=== PATIENT | male | born 2000 | race Caucasian/White ===

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

== ENCOUNTER 2020-05-10 10:04 | Emergency (ER) | payer OTHER ==
[~2020-05-10] VITALS: Ht 182.9 cm; Wt 63.5 kg
[2020-05-10] MEDS ORDERED: ACCU-CHEK COMFORT CURVE STRIP VI ONE (10:30)
[2020-05-10] MEDS ORDERED: SODIUM CHLORIDE 0.9% 1,000 ML IV ONE ×2 (10:30)
[2020-05-10] MEDS ORDERED: LORazepam 2MG/ML-1ML VIAL IV ONE ×2 (10:30→11:30)
[2020-05-10 10:32] LABS: Basophils # (auto) 0.1 10 ^3/uL (0-0.2); Eosinophils # (auto) 0 10 ^3/uL (0-0.8); Eosinophils % (auto) 0.4 % (0.0-7.0); Hematocrit 40.4 % (41.0-53.0); Hemoglobin 13.9 g/dL (13.5-17.5); Mean Corpuscular Hgb Conc. 34.4 g/dL (32.0-36.0); Neutrophils # (auto) 3.8 10 ^3/uL (1.6-8.6); Nucleated Red Blood Cells % 0.1 %
[2020-05-10 10:34] LABS: Basophils % (auto) 1.2 % (0.0-2.0); Lymphocytes # (auto) 2.3 10 ^3/uL (0.4-5.4); Lymphocytes % (auto) 35.5 % (10.0-50.0); Mean Corpuscular Hemoglobin 34.7 pg (28.0-32.0); Mean Corpuscular Volume 100.7 fL (80.0-100.0); Monocytes # (auto) 0.3 10 ^3/uL (0-1.3); Monocytes % (auto) 4.8 % (0.0-12.0); Neutrophils % (auto) 58.1 % (37.0-80.0); Red Blood Cells 4.01 10^6/uL (4.5-5.90); White Blood Cell 6.6 10^3/uL (4.4-10.8)
[2020-05-10 10:57] LABS: Albumin 3.6 g/dL (3.4-5.0); Calcium 7.7 mg/dL (8.5-10.1); Potassium 3.5 mmol/L (3.5-5.1)
[2020-05-10 11:01] LABS: BUN/Creatinine Ratio 9.2; Bilirubin, Total 0.2 mg/dL (0.2-1.0); Total Protein 6.6 g/dL (6.4-8.2)
[2020-05-10] MEDS ORDERED: LORazepam 2MG/ML-1ML VIAL ONE (11:04)
[2020-05-10 12:17] VITALS: BP 119/71
== END 2020-05-10 15:16 | disposition home or self-care (01) ==
LOC: ER 10:04 → EDBD 10:04 → ER 15:16
DX: R56.9 Unspecified convulsions (principal); R73.9 Hyperglycemia, unspecified; Z88.1 Allergy status to other antibiotic agents
CPT/HCPCS: 36415; 70450; 71045; 80053; 85025; 96361; 96365; 96375; 96376; 99285; J1953; J2060; J7060

== ENCOUNTER 2021-02-25 08:03 | Emergency (ER) | payer OTHER ==
[~2021-02-25] VITALS: Ht 170.2 cm; Wt 63.5 kg
[2021-02-25] MEDS ORDERED: LORazepam 2MG/ML-1ML VIAL ONE (08:43)
[2021-02-25 09:14] LABS: Eosinophils # (auto) 0 10 ^3/uL (0-0.8); Eosinophils % (auto) 0.2 % (0.0-7.0); Hemoglobin 14.9 g/dL (13.5-17.5); Mean Corpuscular Volume 105.3 fL (80.0-100.0)
[2021-02-25 09:17] LABS: Urine Bacteria FEW /hpf (None Seen); Urine Blood TRACE /uL (Negative); Urine Specific Gravity 1.014 (1.001-1.035); Urine WBC 2 /hpf (0 - 3)
[2021-02-25 09:19] LABS: Basophils # (auto) 0.1 10 ^3/uL (0-0.2); Basophils % (auto) 0.8 % (0.0-2.0); Hematocrit 45.3 % (41.0-53.0); Lymphocytes # (auto) 1.9 10 ^3/uL (0.4-5.4); Lymphocytes % (auto) 11.8 % (10.0-50.0); Mean Corpuscular Hemoglobin 34.7 pg (28.0-32.0); Mean Corpuscular Hgb Conc. 32.9 g/dL (32.0-36.0); Monocytes # (auto) 0.9 10 ^3/uL (0-1.3); Neutrophils # (auto) 12.8 10 ^3/uL (1.6-8.6); Neutrophils % (auto) 81.2 % (37.0-80.0); Red Blood Cells 4.31 10^6/uL (4.5-5.90); Red Cell Distribution Width 12.5 % (11.8-14.3); White Blood Cell 15.8 10^3/uL (4.4-10.8)
[2021-02-25] MEDS ORDERED: LORazepam 2MG/ML-1ML VIAL IV ONE (09:30)
[2021-02-25 09:40] VITALS: BP 90/55
[2021-02-25 09:45] LABS: Alcohol, Urine < 3.0 mg/dL (0-10); Amphetamine Screen, Urine NEGATIVE (NEGATIVE); Barbiturate Scree,Urine NEGATIVE (NEGATIVE); Benzodiazephine Screen, Urine POSITIVE (NEGATIVE); Cannabinoid Screen, Urine POSITIVE (NEGATIVE); Cocaine Screen, Urine NEGATIVE (NEGATIVE); Opiate Scree,Urine NEGATIVE (NEGATIVE); Phencyclidine Screen, Urine NEGATIVE (NEGATIVE)
[2021-02-25] MEDS ORDERED: SODIUM CHLORIDE 0.9% 1,000 ML IVB ONE (10:15)
[2021-02-25 11:49] LABS: Albumin 3.9 g/dL (3.4-5.0); Calcium 8.5 mg/dL (8.5-10.1); Potassium 4.3 mmol/L (3.5-5.1)
[2021-02-25 11:53] LABS: Bilirubin, Total 0.2 mg/dL (0.2-1.0); Total Protein 6.9 g/dL (6.4-8.2)
== END 2021-02-25 13:59 | disposition home or self-care (01) ==
LOC: EDSEX 08:03 → ER 08:03 → EDBD 08:03 → ER 13:59
DX: G40.909 Epilepsy, unspecified, not intractable, without status epilepticus (principal); F12.10 Cannabis abuse, uncomplicated; R73.9 Hyperglycemia, unspecified
CPT/HCPCS: 36415; 70450; 71045; 80053; 80307; 81001; 83735; 84443; 85025; 93005; 96361; 96374; 99285; J2060; J7030; A4565

== ENCOUNTER 2022-11-08 17:38 | Inpatient (IN) | payer OTHER ==
[~2022-11-08] VITALS: Ht 185.4 cm; Wt 66.1 kg
[2022-11-08] MEDS ORDERED: SODIUM CHLORIDE 0.9% 1,000 ML IVB ONE (18:15)
[2022-11-08] MEDS ORDERED: LORazepam 2MG/ML-1ML VIAL ONE (18:19)
[2022-11-08] MEDS ORDERED: ETOMIDATE (2MG/ML) 20ML VIAL IV ONE ×2 (18:22→18:28)
[2022-11-08] MEDS ORDERED: SUCCINYLCHOLINE CHLORIDE 20 MG/ML 10ML VIAL IV ONE ×2 (18:22→18:28)
[2022-11-08] MEDS ORDERED: MIDAZOLAM DRIP 50 mg/50mL 50 ML IV ONE (18:33)
[2022-11-08] MEDS: MIDAZOLAM DRIP 50 mg/50mL 50 ML IV SCH (18:33)
[2022-11-08 18:45] VITALS: PULSE 173; RESP 32; O2SAT 100
[2022-11-08] MEDS ORDERED: fentaNYL Drip 2500mCg/250mlNS 250 ML IV ONE (18:50)
[2022-11-08] MEDS: fentaNYL Drip 2500mCg/250mlNS 250 ML IV SCH (19:05)
[2022-11-08 20:02] LABS: Basophils # (auto) 0.1 10 ^3/uL (0-0.2); Eosinophils # (auto) 0 10 ^3/uL (0-0.8); Hemoglobin 14.6 g/dL (13.5-17.5); Mean Corpuscular Volume 103.6 fL (80.0-100.0); White Blood Cell 16.9 10^3/uL (4.4-10.8)
[2022-11-08 20:03] LABS: Basophils % (auto) 0.4 % (0.0-2.0); Hematocrit 43.5 % (41.0-53.0); Lymphocytes # (auto) 0.8 10 ^3/uL (0.4-5.4); Lymphocytes % (auto) 4.6 % (10.0-50.0); Mean Corpuscular Hemoglobin 34.7 pg (28.0-32.0); Mean Corpuscular Hgb Conc. 33.5 g/dL (32.0-36.0); Monocytes # (auto) 1.3 10 ^3/uL (0-1.3); Monocytes % (auto) 7.4 % (0.0-12.0); Neutrophils # (auto) 14.8 10 ^3/uL (1.6-8.6); Neutrophils % (auto) 87.6 % (37.0-80.0); Red Cell Distribution Width 12.2 % (11.8-14.3)
[2022-11-08 20:09] LABS: Urine Bacteria FEW /hpf (None Seen); Urine Blood 3+ /uL (Negative); Urine Clarity Clear (Clear); Urine Color Yellow (Yellow); Urine Hyaline Cast FEW /lpf (0 - 2); Urine Protein, UAD 1+ (Negative); Urine Urobilinogen Normal (Negative); Urine WBC 6 /hpf (0 - 3)
[2022-11-08 20:12] VITALS: PULSE 76; RESP 15; O2SAT 100
[2022-11-08 20:23] LABS: Albumin 4.3 g/dL (3.4-5.0); BUN/Creatinine Ratio 9.8 (10.0-20.0); Calcium 8.5 mg/dL (8.5-10.1); Potassium 3.8 mmol/L (3.5-5.1)
[2022-11-08 20:24] LABS: Base Excess -7.4 mmol/L (-2.0-2.0)
[2022-11-08 20:26] LABS: Bilirubin, Total 0.3 mg/dL (0.2-1.0); Total Protein 7.1 g/dL (6.4-8.2)
[2022-11-08 20:27] LABS: Lactic Acid w/Reflex 7.6 mmol/L (0.4-2.0)
[2022-11-08 20:31] LABS: INR 1.25 (0.9-1.15); Partial Thromboplastin Time 23.4 SEC (24.5-34.5); Prothrombin Time 12.9 sec (9.3-11.8)
[2022-11-08 20:32] LABS: Alcohol, Urine < 3.0 mg/dL (0-10); Amphetamine Screen, Urine NEGATIVE (NEGATIVE)
[2022-11-08 20:34] LABS: Blood Alcohol < 3.0 mg/dL (<10); Magnesium 2.3 mg/dL (1.6-2.6)
[2022-11-08 20:40] LABS: Barbiturate Scree,Urine NEGATIVE (NEGATIVE); Benzodiazephine Screen, Urine POSITIVE (NEGATIVE); Cannabinoid Screen, Urine POSITIVE (NEGATIVE); Cocaine Screen, Urine NEGATIVE (NEGATIVE); Opiate Scree,Urine NEGATIVE (NEGATIVE); Phencyclidine Screen, Urine NEGATIVE (NEGATIVE)
[2022-11-08] MEDS ORDERED: PIPERACILLIN-TAZOB 3.375GM 100 ML IV ONE (21:15)
[2022-11-08] MEDS ORDERED: SODIUM CHLORIDE 0.9% 1,000 ML IV ONE ×2 (21:15→22:00)
[2022-11-08 21:37] VITALS: BP 91/61; PULSE 102; RESP 16; TEMP 98.9; O2SAT 100
[2022-11-08] MEDS ORDERED: NITROGLYCERIN 0.4 MG SL TAB SL PRN (22:00)
[2022-11-08] MEDS ORDERED: MORPHINE SULFATE INJ 2 MG/ml SYRG IV PRN (22:00)
[2022-11-08] MEDS ORDERED: ACETAMINOPHEN 650 mg PER 20.3 mL UD NG ONE (22:00)
[2022-11-08] MEDS ORDERED: PANTOPRAZOLE 40 MG/10 ML VIAL INJ IV ONE (22:00)
[2022-11-08] MEDS ORDERED: SODIUM BICARBONATE 8.4 % INJ 50ML VIAL IV ONE (22:00)
[2022-11-08] MEDS ORDERED: ZONI100C43 PO (22:01)
[2022-11-08] MEDS ORDERED: DIVA1TAB59 PO (22:01)
[2022-11-08 22:04] VITALS: BP 104/62; PULSE 92; RESP 16; O2SAT 100
[2022-11-08] MEDS ORDERED: IOHEXOL 350 MG/ML 100ML IJ ONE (22:06)
[2022-11-08] MEDS ORDERED: LORazepam 2MG/ML-1ML VIAL IV PRN (22:15)
[2022-11-08] MEDS ORDERED: VANCOMYCIN PER PHARMACY 0 MG IV SCH (23:00)
[2022-11-08] MEDS ORDERED: HEPARIN SODIUM (PORCINE) 5000 UNITS/ML 1ML VIAL IV ONE (23:15)
[2022-11-08] MEDS ORDERED: HEPARIN DRIP/D5W 100UNITS/ML 250 ML IV SCH (23:30)
[2022-11-09] VITALS (89 sets, daily range): BP systolic 83–141; BP diastolic 46–98; PULSE 61–142; RESP 12–19; TEMP 97.3–102.7; O2SAT 98–100
[2022-11-09] MEDS: MIDAZOLAM DRIP 50 mg/50mL 50 ML IV SCH ×6 (00:48→23:25)
[2022-11-09] MEDS: SODIUM CHLORIDE 0.9% 1,000 ML IV SCH ×4 (00:51→21:09)
[2022-11-09 01:05] LABS: Basophils # (auto) 0 10 ^3/uL (0-0.2); Eosinophils # (auto) 0 10 ^3/uL (0-0.8); Hemoglobin 12.6 g/dL (13.5-17.5); Mean Corpuscular Hemoglobin 35.5 pg (28.0-32.0)
[2022-11-09 01:06] LABS: Basophils % (auto) 0.3 % (0.0-2.0); Hematocrit 37.3 % (41.0-53.0); Lymphocytes # (auto) 0.8 10 ^3/uL (0.4-5.4); Lymphocytes % (auto) 5.9 % (10.0-50.0); Mean Corpuscular Hgb Conc. 33.8 g/dL (32.0-36.0); Monocytes # (auto) 1.4 10 ^3/uL (0-1.3); Monocytes % (auto) 11.1 % (0.0-12.0); Neutrophils # (auto) 10.6 10 ^3/uL (1.6-8.6); Neutrophils % (auto) 82.7 % (37.0-80.0); Red Blood Cells 3.55 10^6/uL (4.5-5.90); Red Cell Distribution Width 12.5 % (11.8-14.3); White Blood Cell 12.8 10^3/uL (4.4-10.8)
[2022-11-09 01:19] LABS: INR 1.28 (0.9-1.15); Partial Thromboplastin Time 23.7 SEC (24.5-34.5); Prothrombin Time 13.2 sec (9.3-11.8)
[2022-11-09] MEDS: VANCOMYCIN 1GM/250ML 250 ML IV SCH ×2 (01:42→09:19)
[2022-11-09 04:10] LABS: Basophils # (auto) 0 10 ^3/uL (0-0.2); Eosinophils # (auto) 0 10 ^3/uL (0-0.8); Hemoglobin 12.9 g/dL (13.5-17.5); Lymphocytes # (auto) 1.5 10 ^3/uL (0.4-5.4); Mean Corpuscular Hgb Conc. 33.3 g/dL (32.0-36.0); Nucleated Red Blood Cells % 0.1 %; Red Blood Cells 3.68 10^6/uL (4.5-5.90); White Blood Cell 13.3 10^3/uL (4.4-10.8)
[2022-11-09 04:13] LABS: Basophils % (auto) 0.3 % (0.0-2.0); Hematocrit 38.9 % (41.0-53.0); Lymphocytes % (auto) 11.1 % (10.0-50.0); Mean Corpuscular Hemoglobin 35.2 pg (28.0-32.0); Mean Corpuscular Volume 105.8 fL (80.0-100.0); Monocytes # (auto) 1.9 10 ^3/uL (0-1.3); Monocytes % (auto) 14.3 % (0.0-12.0); Neutrophils # (auto) 9.9 10 ^3/uL (1.6-8.6); Neutrophils % (auto) 74.3 % (37.0-80.0); Red Cell Distribution Width 12.3 % (11.8-14.3)
[2022-11-09 04:27] LABS: Albumin 3.1 g/dL (3.4-5.0); Calcium 7.5 mg/dL (8.5-10.1); Potassium 4.4 mmol/L (3.5-5.1)
[2022-11-09 04:31] LABS: Lactic Acid w/Reflex 3.1 mmol/L (0.4-2.0)
[2022-11-09 04:33] LABS: BUN/Creatinine Ratio 10.3 (10.0-20.0); Bilirubin, Total 0.4 mg/dL (0.2-1.0); Total Protein 5.2 g/dL (6.4-8.2)
[2022-11-09] MEDS: CEFEPIME 1GM/ 50ML 50 ML IV SCH ×3 (05:19→21:08)
[2022-11-09 08:54] LABS: Base Excess -5.1 mmol/L (-2.0-2.0)
[2022-11-09] MEDS: NOREPINEPHRINE 8 MG/250ML KIT 250 ML IV SCH (09:14)
[2022-11-09] MEDS: PANTOPRAZOLE 40 MG/10 ML VIAL INJ IV SCH (09:19)
[2022-11-09] MEDS ORDERED: ENOXAPARIN SOD 40 MG/0.4 ML SYRINGE SC SCH (10:00)
[2022-11-09] MEDS ORDERED: ENOXAPARIN SOD 40 MG/0.4 ML SYRINGE SC ONE (11:00)
[2022-11-09] MEDS: VALPROIC ACID 250 MG/5 ML ORAL SOLN GT SCH ×2 (12:20→18:32)
[2022-11-09 14:10] LABS: INR 1.23 (0.9-1.15); Partial Thromboplastin Time 38.8 SEC (24.5-34.5); Prothrombin Time 12.7 sec (9.3-11.8)
[2022-11-09] MEDS ORDERED: VIMPAT 50 MG IV SCH (15:45)
[2022-11-09] MEDS: LACOSAMIDE 50 MG in SODIUM CHL 0.9% 50 ML IV SCH (17:30)
[2022-11-09] MEDS: ZONISAMIDE 100 MG PO SCH (18:32)
[2022-11-09] MEDS: fentaNYL Drip 2500mCg/250mlNS 250 ML IV SCH (20:20)
[2022-11-09] MEDS: ACETAMINOPHEN 325 MG TAB PO PRN (21:37)
[2022-11-10] VITALS (106 sets, daily range): BP systolic 93–136; BP diastolic 49–81; PULSE 65–125; RESP 11–21; TEMP 81–101.7; O2SAT 97–100
[2022-11-10] MEDS: MIDAZOLAM DRIP 50 mg/50mL 50 ML IV SCH ×5 (03:29→23:08)
[2022-11-10] MEDS: NOREPINEPHRINE 8 MG/250ML KIT 250 ML IV SCH (04:15)
[2022-11-10 05:04] LABS: Albumin 2.7 g/dL (3.4-5.0); Potassium 3.9 mmol/L (3.5-5.1)
[2022-11-10 05:07] LABS: BUN/Creatinine Ratio 6.2 (10.0-20.0); Bilirubin, Total 0.6 mg/dL (0.2-1.0); Total Protein 4.9 g/dL (6.4-8.2)
[2022-11-10] MEDS: VALPROIC ACID 250 MG/5 ML ORAL SOLN GT SCH ×2 (06:01→18:28)
[2022-11-10] MEDS: CEFEPIME 1GM/ 50ML 50 ML IV SCH ×3 (06:01→21:09)
[2022-11-10 06:04] LABS: Hematocrit 36.8 % (41.0-53.0); Hemoglobin 12.4 g/dL (13.5-17.5); Mean Corpuscular Hemoglobin 34.7 pg (28.0-32.0); Mean Corpuscular Hgb Conc. 33.7 g/dL (32.0-36.0); Mean Corpuscular Volume 102.8 fL (80.0-100.0); Red Blood Cells 3.58 10^6/uL (4.5-5.90); White Blood Cell 10.8 10^3/uL (4.4-10.8)
[2022-11-10 06:06] LABS: Basophils % (manual) 0 (0.0-2.0); Blast Cells 0; Eosinophils % (manual) 0 (0-7); Metamyelocytes % 0; Myelocytes % 0; Promyelocytes % 0; Reactive Lymphocytes 0
[2022-11-10] MEDS: ACETAMINOPHEN 325 MG TAB PO PRN ×3 (06:06→18:34)
[2022-11-10 06:53] LABS: Anisocytosis Slight; Band Neutrophils % (manual) 8; Lymphocytes % (manual) 25 (10.0-50.0); Macrocytosis Slight; Monocytes % (manual) 14 (0-12); Platelet Estimate Decreased; Polychromasia Slight
[2022-11-10] MEDS: SODIUM CHLORIDE 0.9% 1,000 ML IV SCH ×2 (07:30→17:30)
[2022-11-10 08:07] LABS: Base Excess -3.8 mmol/L (-2.0-2.0)
[2022-11-10] MEDS: LACOSAMIDE 50 MG in SODIUM CHL 0.9% 50 ML IV SCH ×2 (08:47→19:39)
[2022-11-10] MEDS ORDERED: ZONISAMIDE PO SCH (10:00)
[2022-11-10] MEDS: PANTOPRAZOLE 40 MG/10 ML VIAL INJ IV SCH (10:33)
[2022-11-10] MEDS: ENOXAPARIN SOD 40 MG/0.4 ML SYRINGE SC SCH (10:33)
[2022-11-10] MEDS: fentaNYL Drip 2500mCg/250mlNS 250 ML IV SCH ×2 (10:41→23:18)
[2022-11-10] MEDS: ZONISAMIDE 100 MG PO SCH (18:28)
[2022-11-11] VITALS (85 sets, daily range): BP systolic 100–145; BP diastolic 53–104; PULSE 65–123; RESP 10–21; TEMP 97.3–99.1; O2SAT 93–100
[2022-11-11] MEDS: SODIUM CHLORIDE 0.9% 1,000 ML IV SCH ×3 (03:30→23:30)
[2022-11-11] MEDS: NOREPINEPHRINE 8 MG/250ML KIT 250 ML IV SCH (03:33)
[2022-11-11] MEDS: MIDAZOLAM DRIP 50 mg/50mL 50 ML IV SCH (03:34)
[2022-11-11 03:55] LABS: Basophils # (auto) 0 10 ^3/uL (0-0.2); Basophils % (auto) 0.4 % (0.0-2.0); Eosinophils # (auto) 0.1 10 ^3/uL (0-0.8); Eosinophils % (auto) 0.9 % (0.0-7.0); Hemoglobin 11.8 g/dL (13.5-17.5); Lymphocytes # (auto) 1.2 10 ^3/uL (0.4-5.4); Lymphocytes % (auto) 16.9 % (10.0-50.0); Mean Corpuscular Hemoglobin 35.6 pg (28.0-32.0); Mean Corpuscular Hgb Conc. 34.6 g/dL (32.0-36.0); Mean Corpuscular Volume 102.8 fL (80.0-100.0); Monocytes # (auto) 1.2 10 ^3/uL (0-1.3); Monocytes % (auto) 17.3 % (0.0-12.0); Neutrophils # (auto) 4.5 10 ^3/uL (1.6-8.6); Neutrophils % (auto) 64.5 % (37.0-80.0); Nucleated Red Blood Cells % 0.1 %; Red Blood Cells 3.31 10^6/uL (4.5-5.90)
[2022-11-11 04:08] LABS: Potassium 3.5 mmol/L (3.5-5.1)
[2022-11-11 04:15] LABS: Albumin 2.5 g/dL (3.4-5.0); BUN/Creatinine Ratio 14.3 (10.0-20.0); Bilirubin, Total 0.7 mg/dL (0.2-1.0); Calcium 8.1 mg/dL (8.5-10.1); Total Protein 5.2 g/dL (6.4-8.2)
[2022-11-11] MEDS: VALPROIC ACID 250 MG/5 ML ORAL SOLN GT SCH (05:59)
[2022-11-11] MEDS: CEFEPIME 1GM/ 50ML 50 ML IV SCH ×3 (05:59→22:12)
[2022-11-11 07:41] LABS: Base Excess -5.8 mmol/L (-2.0-2.0)
[2022-11-11] MEDS: LACOSAMIDE 50 MG in SODIUM CHL 0.9% 50 ML IV SCH ×2 (08:10→20:35)
[2022-11-11] MEDS: PANTOPRAZOLE 40 MG/10 ML VIAL INJ IV SCH (11:39)
[2022-11-11] MEDS: ENOXAPARIN SOD 40 MG/0.4 ML SYRINGE SC SCH (11:39)
[2022-11-11 13:30] LABS: Base Excess -3.8 mmol/L (-2.0-2.0)
[2022-11-11] MEDS ORDERED: VALPROIC ACID 250 MG/5 ML ORAL SOLN PO SCH ×2 (18:00→18:32)
[2022-11-11] MEDS ORDERED: ONDANSETRON HCL 4 MG/2 ML VIAL ONE (18:27)
[2022-11-11] MEDS ORDERED: ONDANSETRON HCL 4 MG/2 ML VIAL IV PRN (18:30)
[2022-11-11] MEDS: ZONISAMIDE 100 MG PO SCH (20:38)
[2022-11-12] VITALS (13 sets, daily range): BP systolic 111–142; BP diastolic 61–92; PULSE 85–108; RESP 10–20; TEMP 98–98.7; O2SAT 97–100
[2022-11-12] MEDS: NOREPINEPHRINE 8 MG/250ML KIT 250 ML IV SCH (03:41)
[2022-11-12 04:23] LABS: Potassium 3.7 mmol/L (3.5-5.1)
[2022-11-12 04:26] LABS: Basophils # (auto) 0 10 ^3/uL (0-0.2); Basophils % (auto) 0.1 % (0.0-2.0); Eosinophils # (auto) 0 10 ^3/uL (0-0.8); Hematocrit 34.5 % (41.0-53.0); Hemoglobin 11.9 g/dL (13.5-17.5); Lymphocytes # (auto) 0.3 10 ^3/uL (0.4-5.4); Lymphocytes % (auto) 4.5 % (10.0-50.0); Mean Corpuscular Hemoglobin 34.8 pg (28.0-32.0); Mean Corpuscular Hgb Conc. 34.5 g/dL (32.0-36.0); Monocytes # (auto) 0.7 10 ^3/uL (0-1.3); Monocytes % (auto) 9.6 % (0.0-12.0); Neutrophils % (auto) 85.8 % (37.0-80.0); Red Blood Cells 3.42 10^6/uL (4.5-5.90); Red Cell Distribution Width 11.9 % (11.8-14.3)
[2022-11-12 04:31] LABS: Albumin 2.7 g/dL (3.4-5.0); BUN/Creatinine Ratio 14.5 (10.0-20.0); Bilirubin, Total 0.5 mg/dL (0.2-1.0); Calcium 8.6 mg/dL (8.5-10.1); Total Protein 5.8 g/dL (6.4-8.2)
[2022-11-12] MEDS: CEFEPIME 1GM/ 50ML 50 ML IV SCH (05:47)
[2022-11-12] MEDS ORDERED: VALPROIC ACID 250 MG/5 ML ORAL SOLN PO SCH ×2 (07:00)
[2022-11-12] MEDS: LACOSAMIDE 50 MG in SODIUM CHL 0.9% 50 ML IV SCH (08:35)
[2022-11-12] MEDS: ENOXAPARIN SOD 40 MG/0.4 ML SYRINGE SC SCH (10:00)
[2022-11-12] MEDS ORDERED: ZONI100C43 PO (10:35)
[2022-11-12] MEDS ORDERED: LACO50TA2 PO (10:35)
[2022-11-12] MEDS ORDERED: LACOSAMIDE 50 MG TAB PO SCH (14:00)
[2022-11-13] MEDS ORDERED: PANTOPRAZOLE 40 MG TAB PO SCH (10:00)
== END 2022-11-12 12:15 | disposition home or self-care (01) | DRG 871 ==
LOC: EDBD 17:38 → ER 17:38 → TELE 21:56 → ICU WEST 23:45
PROVIDERS: ADMIT Internal Medicine; ATTEND Internal Medicine
PROC: 5A1945Z Respiratory Ventilation, 24-96 Consecutive Hours (ICD-10-PCS; principal; 2022-11-08)
PROC: 0BH17EZ Insertion of Endotracheal Airway into Trachea, Via Natural or Artificial Opening (ICD-10-PCS; 2022-11-08)
PROC: 05HB33Z Insertion of Infusion Device into Right Basilic Vein, Percutaneous Approach (ICD-10-PCS; 2022-11-11)
PROC: B54MZZA Ultrasonography of Right Upper Extremity Veins, Guidance (ICD-10-PCS; 2022-11-11)
DX: A41.9 Sepsis, unspecified organism (principal); I21.A1 Myocardial infarction type 2; J96.01 Acute respiratory failure with hypoxia; E44.1 Mild protein-calorie malnutrition; G40.201 Localization-related (focal) (partial) symptomatic epilepsy and epileptic syndromes with complex partial seizures, not intractable, with status epilepticus; J98.11 Atelectasis; Z68.1 Body mass index [BMI] 19.9 or less, adult; D53.9 Nutritional anemia, unspecified; F17.290 Nicotine dependence, other tobacco product, uncomplicated; D69.6 Thrombocytopenia, unspecified; Z88.1 Allergy status to other antibiotic agents; Z79.899 Other long term (current) drug therapy
CPT/HCPCS: 31500; 36415; 36600; 70450; 71045; 71275; 72125; 80053; 80164; 80307; 80320; 81001; 82542; 82607; 82746; 82805; 83605; 83735; 84443; 84484; 85007; 85025; 85027; 85379; 85610; 85730; 87040; 87070; 87081; 87205; 93005; 94002; 94003; 95819; 96365; 96367; 96375; C9113; C9254; G0378; J0330; J2250; J2405; J2543; J7060

== ENCOUNTER 2023-04-25 17:01 | Inpatient (IN) | payer OTHER ==
[~2023-04-25] VITALS: Ht 190.5 cm; Wt 62.4 kg
[~2023-04-25 17:01] MED LIST: DIVA1TAB59 PO; LACO50TA2 PO; ZONI100C43 PO
[2023-04-25 17:02] VITALS: PULSE 133; RESP 31; O2SAT 91
[2023-04-25] MEDS ORDERED: MIDAZOLAM DRIP 50 mg/50mL 50 ML IV ONE (17:08)
[2023-04-25 17:10] VITALS: BP 144/107; PULSE 96; RESP 18; O2SAT 100
[2023-04-25] MEDS: MIDAZOLAM DRIP 50 mg/50mL 50 ML IV SCH (17:15)
[2023-04-25 18:12] LABS: Base Excess -11.5 mmol/L (-2.0-2.0)
[2023-04-25] MEDS ORDERED: PROPOFOL 100 ML IV ONE (18:12)
[2023-04-25] MEDS: PROPOFOL 100 ML IV SCH (18:15)
[2023-04-25] MEDS ORDERED: ROCURONIUM 10MG/ML 10ML VIAL IV ONE ×2 (18:49→19:00)
[2023-04-25 18:51] LABS: Alanine Aminotransferase 17 U/L (7-40); Albumin 4.9 g/dL (3.2-4.8); Alkaline Phosphatase 57 U/L (46-116); Anion Gap 12 (5-15); Aspartate Aminotransferase 16 U/L (13-40); BUN/Creatinine Ratio 12.4 (10.0-20.0); Blood Urea Nitrogen 13 mg/dL (9-23); Calcium 9.2 mg/dL (8.7-10.4); Carbon Dioxide 17 mmol/L (20-30); Chloride 111 mmol/L (98-107); Glucose 235 mg/dL (74-106); Magnesium 1.9 mg/dL (1.6-2.6); Potassium 4.2 mmol/L (3.5-5.1); Sodium 140 mmol/L (136-145)
[2023-04-25 18:52] LABS: Bilirubin, Total 0.4 mg/dL (0.2-1.0); Total Protein 6.7 g/dL (5.7-8.2)
[2023-04-25 18:54] LABS: Basophils # (auto) 0.1 10 ^3/uL (0-0.2); Basophils % (auto) 0.5 % (0.0-2.0); Eosinophils # (auto) 0 10 ^3/uL (0-0.8); Eosinophils % (auto) 0.1 % (0.0-7.0); Hemoglobin 14.5 g/dL (13.5-17.5); Monocytes # (auto) 0.6 10 ^3/uL (0-1.3)
[2023-04-25 18:57] LABS: Hematocrit 43.5 % (41.0-53.0); Lymphocytes # (auto) 1.3 10 ^3/uL (0.4-5.4); Lymphocytes % (auto) 9.7 % (10.0-50.0); Mean Corpuscular Hgb Conc. 33.4 g/dL (32.0-36.0); Mean Corpuscular Volume 101.9 fL (80.0-100.0); Monocytes % (auto) 4.7 % (0.0-12.0); Neutrophils # (auto) 11.4 10 ^3/uL (1.6-8.6); Nucleated Red Blood Cells % 0.1 %; Red Blood Cells 4.27 10^6/uL (4.5-5.90); Red Cell Distribution Width 12.2 % (11.8-14.3); White Blood Cell 13.4 10^3/uL (4.4-10.8)
[2023-04-25 18:59] LABS: Amphetamine Screen, Urine Neg (NEGATIVE); Urine Bacteria FEW /hpf (None Seen); Urine Blood TRACE /uL (Negative); Urine Budding Yeast FEW /hpf (None Seen); Urine Clarity Clear (Clear); Urine Color Colorless (Yellow); Urine Protein, UAD 2+ (Negative); Urine Specific Gravity 1.011 (1.001-1.035); Urine Urobilinogen Normal (Negative); Urine WBC 13 /hpf (0 - 3); Urine pH 6.5 (5.0-8.0)
[2023-04-25 19:00] LABS: Barbiturate Scree,Urine Neg (NEGATIVE); Benzodiazephine Screen, Urine Pos (NEGATIVE); Cannabinoid Screen, Urine Pos (NEGATIVE); Cocaine Screen, Urine Neg (NEGATIVE); Opiate Scree,Urine Neg (NEGATIVE); Phencyclidine Screen, Urine Neg (NEGATIVE)
[2023-04-25 19:09] LABS: INR 1.23 (0.9-1.15); Partial Thromboplastin Time 27.8 SEC (24.5-34.5); Prothrombin Time 12.7 sec (9.3-11.8)
[2023-04-25 19:18] LABS: Blood Alcohol 3.5 mg/dL (<10)
[2023-04-25 19:30] VITALS: BP 145/91; PULSE 100; PULSE 102; RESP 18; O2SAT 100
[2023-04-25 19:31] LABS: Lactic Acid w/Reflex 4.5 mmol/L (0.4-2.0)
[2023-04-25 19:45] VITALS: BP 129/85; PULSE 112; RESP 20; O2SAT 100
[2023-04-25] MEDS ORDERED: LORazepam 2MG/ML-1ML VIAL ONE (20:51)
[2023-04-25] MEDS ORDERED: LORazepam 2MG/ML-1ML VIAL IV ONE (21:00)
[2023-04-25] MEDS ORDERED: VALPROATE INJ 1,000 MG in SODIUM CHL 0.9% 100 ML IV ONE (21:00)
[2023-04-25] MEDS ORDERED: ONDANSETRON HCL 4 MG/2 ML VIAL IV PRN (21:30)
[2023-04-25] MEDS ORDERED: LORazepam 2MG/ML-1ML VIAL IV PRN (21:30)
[2023-04-25] MEDS ORDERED: MORPHINE SULFATE INJ 2 MG/ml SYRG IV PRN (21:45)
[2023-04-25] MEDS ORDERED: NITROGLYCERIN 0.4 MG SL TAB SL PRN (21:45)
[2023-04-25] MEDS: LACTATED RINGER S IV ONE (22:00)
[2023-04-25] MEDS ORDERED: LACTATED RINGER'S 1,000 ML IV ONE (22:00)
[2023-04-25] MEDS: SODIUM CHLOR 0.9% PF (SALINE LOCK) 10ML VIAL/SYR IV SCH (22:02)
[2023-04-25 22:08] VITALS: BP 110/77; PULSE 108; RESP 21; O2SAT 100
[2023-04-26] VITALS (69 sets, daily range): BP systolic 90–137; BP diastolic 52–88; PULSE 70–105; RESP 16–29; TEMP 97.5–99.3; O2SAT 89–100
[2023-04-26 05:24] LABS: Basophils # (auto) 0 10 ^3/uL (0-0.2); Eosinophils # (auto) 0 10 ^3/uL (0-0.8); Hemoglobin 12.9 g/dL (13.5-17.5); Lymphocytes # (auto) 0.5 10 ^3/uL (0.4-5.4); Monocytes # (auto) 1.5 10 ^3/uL (0-1.3); Neutrophils # (auto) 12.4 10 ^3/uL (1.6-8.6); Red Cell Distribution Width 12.2 % (11.8-14.3)
[2023-04-26 05:27] LABS: Basophils % (auto) 0.2 % (0.0-2.0); Hematocrit 37.7 % (41.0-53.0); Lymphocytes % (auto) 3.5 % (10.0-50.0); Mean Corpuscular Hemoglobin 34.4 pg (28.0-32.0); Mean Corpuscular Hgb Conc. 34.2 g/dL (32.0-36.0); Mean Corpuscular Volume 100.6 fL (80.0-100.0); Monocytes % (auto) 10.4 % (0.0-12.0); Neutrophils % (auto) 85.9 % (37.0-80.0); Red Blood Cells 3.75 10^6/uL (4.5-5.90); White Blood Cell 14.5 10^3/uL (4.4-10.8)
[2023-04-26 05:34] LABS: Alanine Aminotransferase 14 U/L (7-40); Albumin 3.8 g/dL (3.2-4.8); Alkaline Phosphatase 41 U/L (46-116); Anion Gap 8 (5-15); Aspartate Aminotransferase 12 U/L (13-40); BUN/Creatinine Ratio 8.1 (10.0-20.0); Bilirubin, Total 0.5 mg/dL (0.2-1.0); Blood Urea Nitrogen 8 mg/dL (9-23); Calcium 8.4 mg/dL (8.7-10.4); Carbon Dioxide 20 mmol/L (20-30); Chloride 113 mmol/L (98-107); Glucose 99 mg/dL (74-106); Sodium 141 mmol/L (136-145); Total Protein 5.6 g/dL (5.7-8.2)
[2023-04-26] MEDS: SODIUM CHLOR 0.9% PF (SALINE LOCK) 10ML VIAL/SYR IV SCH ×3 (06:05→21:45)
[2023-04-26 06:56] LABS: Base Excess -4.1 mmol/L (-2.0-2.0)
[2023-04-26] MEDS: MIDAZOLAM DRIP 50 mg/50mL 50 ML IV SCH ×4 (08:58→22:08)
[2023-04-26] MEDS ORDERED: VALPROATE INJ 500 MG in SODIUM CHL 0.9% 100 ML IV SCH (10:00)
[2023-04-26] MEDS: SODIUM CHLORIDE 0.9% 1,000 ML IV SCH ×2 (13:52→21:42)
[2023-04-26] MEDS: PROPOFOL 100 ML IV SCH ×3 (13:53→22:08)
[2023-04-26] MEDS: ALBUTEROL SULF 2.5 MG/0.5ML(0.5%) NEB SOLN NEB SCH ×3 (13:56→22:21)
[2023-04-26] MEDS: PIPERACILLIN-TAZOB 3.375GM 100 ML IV SCH ×2 (15:14→18:58)
[2023-04-26] MEDS: IPRATROPIUM BROM 0.5 MG/2.5ML INH SOL NEB PRN ×2 (18:56→22:21)
[2023-04-26] MEDS ORDERED: chlorproMAZINE HCL 25 MG/1 ML AMP IM PRN (19:00)
[2023-04-26] MEDS: fentaNYL Drip 2500mCg/250mlNS 250 ML IV SCH (20:17)
[2023-04-26] MEDS: VALPROATE INJ 500 MG in SODIUM CHL 0.9% 100 ML IV SCH (22:08)
[2023-04-27] VITALS (106 sets, daily range): BP systolic 101–139; BP diastolic 53–90; PULSE 72–117; RESP 16–36; TEMP 97.7–98.8; O2SAT 97–100
[2023-04-27] MEDS: PIPERACILLIN-TAZOB 3.375GM 100 ML IV SCH ×4 (00:21→17:24)
[2023-04-27] MEDS: MIDAZOLAM DRIP 50 mg/50mL 50 ML IV SCH ×4 (00:42→17:25)
[2023-04-27] MEDS: SODIUM CHLOR 0.9% PF (SALINE LOCK) 10ML VIAL/SYR IV SCH ×3 (05:22→21:34)
[2023-04-27] MEDS: VALPROATE INJ 500 MG in SODIUM CHL 0.9% 100 ML IV SCH ×3 (05:22→21:34)
[2023-04-27] MEDS: PROPOFOL 100 ML IV SCH ×3 (05:23→15:39)
[2023-04-27] MEDS: IPRATROPIUM BROM 0.5 MG/2.5ML INH SOL NEB PRN ×3 (06:31→19:20)
[2023-04-27] MEDS: ALBUTEROL SULF 2.5 MG/0.5ML(0.5%) NEB SOLN NEB SCH ×3 (06:31→19:20)
[2023-04-27] MEDS: SODIUM CHLORIDE 0.9% 1,000 ML IV SCH ×2 (06:38→10:27)
[2023-04-27 09:05] LABS: Basophils # (auto) 0 10 ^3/uL (0-0.2); Eosinophils # (auto) 0 10 ^3/uL (0-0.8); Lymphocytes # (auto) 1.3 10 ^3/uL (0.4-5.4); Monocytes % (auto) 10.1 % (0.0-12.0)
[2023-04-27 09:07] LABS: Basophils % (auto) 0.2 % (0.0-2.0); Eosinophils % (auto) 0.2 % (0.0-7.0); Hemoglobin 12.3 g/dL (13.5-17.5); Lymphocytes % (auto) 11.6 % (10.0-50.0); Mean Corpuscular Hemoglobin 34.8 pg (28.0-32.0); Mean Corpuscular Volume 102.2 fL (80.0-100.0); Monocytes # (auto) 1.1 10 ^3/uL (0-1.3); Neutrophils # (auto) 8.7 10 ^3/uL (1.6-8.6); Neutrophils % (auto) 77.9 % (37.0-80.0); Red Blood Cells 3.53 10^6/uL (4.5-5.90); Red Cell Distribution Width 12.4 % (11.8-14.3); White Blood Cell 11.2 10^3/uL (4.4-10.8)
[2023-04-27 09:08] LABS: Chloride 113 mmol/L (98-107); Potassium 3.9 mmol/L (3.5-5.1); Sodium 143 mmol/L (136-145)
[2023-04-27 09:09] LABS: Anion Gap 9 (5-15); Calcium 8.7 mg/dL (8.5-10.1); Carbon Dioxide 21 mmol/L (20-30)
[2023-04-27 09:14] LABS: BUN/Creatinine Ratio 10.6 (10.0-20.0); Blood Urea Nitrogen 10 mg/dL (9-23); Glucose 88 mg/dL (74-106)
[2023-04-27] MEDS ORDERED: ENOXAPARIN SOD 40 MG/0.4 ML SYRINGE SC SCH (10:00)
[2023-04-27] MEDS: fentaNYL Drip 2500mCg/250mlNS 250 ML IV SCH (17:25)
[2023-04-28] VITALS (103 sets, daily range): BP systolic 101–159; BP diastolic 59–101; PULSE 71–150; RESP 10–24; TEMP 97.6–98.8; O2SAT 89–100
[2023-04-28] MEDS: IPRATROPIUM BROM 0.5 MG/2.5ML INH SOL NEB PRN ×4 (00:22→18:22)
[2023-04-28] MEDS: ALBUTEROL SULF 2.5 MG/0.5ML(0.5%) NEB SOLN NEB SCH ×4 (00:22→18:22)
[2023-04-28] MEDS: SODIUM CHLORIDE 0.9% 1,000 ML IV SCH (04:34)
[2023-04-28 04:39] LABS: Basophils # (auto) 0 10 ^3/uL (0-0.2); Basophils % (auto) 0.4 % (0.0-2.0); Eosinophils # (auto) 0.1 10 ^3/uL (0-0.8); Hematocrit 31.4 % (41.0-53.0); Hemoglobin 10.6 g/dL (13.5-17.5); Lymphocytes # (auto) 1.3 10 ^3/uL (0.4-5.4); Monocytes # (auto) 0.8 10 ^3/uL (0-1.3); Red Blood Cells 3.06 10^6/uL (4.5-5.90); Red Cell Distribution Width 12.5 % (11.8-14.3)
[2023-04-28 04:48] LABS: Eosinophils % (auto) 1.6 % (0.0-7.0); Lymphocytes % (auto) 19.5 % (10.0-50.0); Mean Corpuscular Hemoglobin 34.7 pg (28.0-32.0); Mean Corpuscular Hgb Conc. 33.8 g/dL (32.0-36.0); Mean Corpuscular Volume 102.8 fL (80.0-100.0); Monocytes % (auto) 11.6 % (0.0-12.0); Neutrophils # (auto) 4.5 10 ^3/uL (1.6-8.6); Neutrophils % (auto) 66.9 % (37.0-80.0); Nucleated Red Blood Cells % 0.1 %; White Blood Cell 6.7 10^3/uL (4.4-10.8)
[2023-04-28 05:01] LABS: Base Excess -4.4 mmol/L (-2.0-2.0)
[2023-04-28 05:02] LABS: Alanine Aminotransferase 11 U/L (7-40); Albumin 3.2 g/dL (3.2-4.8); Alkaline Phosphatase 38 U/L (46-116); Anion Gap 7 (5-15); Aspartate Aminotransferase 24 U/L (13-40); BUN/Creatinine Ratio 10.9 (10.0-20.0); Blood Urea Nitrogen 7 mg/dL (9-23); Calcium 8.1 mg/dL (8.7-10.4); Carbon Dioxide 23 mmol/L (20-30); Chloride 114 mmol/L (98-107); Glucose 84 mg/dL (74-106); Potassium 3.6 mmol/L (3.5-5.1); Sodium 144 mmol/L (136-145)
[2023-04-28 05:03] LABS: Bilirubin, Total 0.5 mg/dL (0.2-1.0); Total Protein 4.8 g/dL (5.7-8.2)
[2023-04-28] MEDS: SODIUM CHLOR 0.9% PF (SALINE LOCK) 10ML VIAL/SYR IV SCH ×3 (05:42→22:03)
[2023-04-28] MEDS: PIPERACILLIN-TAZOB 3.375GM 100 ML IV SCH (05:42)
[2023-04-28] MEDS: VALPROATE INJ 500 MG in SODIUM CHL 0.9% 100 ML IV SCH ×3 (05:43→21:55)
[2023-04-28] MEDS ORDERED: levoFLOXacin 500MG 100 ML IV SCH (10:00)
[2023-04-28] MEDS: LORazepam 2MG/ML-1ML VIAL IV PRN ×2 (10:30→20:50)
[2023-04-28] MEDS ORDERED: FOLIC ACID 1 MG, MULTIPLE VITAMIN 10 ML, MAGNESIUM SULF SDV 50% 8 MEQ, THIAMINE INJ 100... INJ SCH ×10 (10:30→18:00)
[2023-04-28] MEDS ORDERED: FOLIC ACID 1 MG, MULTIPLE VITAMIN 10 ML, MAGNESIUM SULF SDV 50% 8 MEQ, THIAMINE INJ 100... INJ ONE ×5 (11:30)
[2023-04-28] MEDS: PROPOFOL 100 ML IV SCH (18:15)
[2023-04-28] MEDS: fentaNYL Drip 2500mCg/250mlNS 250 ML IV SCH (19:45)
[2023-04-29] VITALS (42 sets, daily range): BP systolic 112–147; BP diastolic 61–102; PULSE 89–125; RESP 10–25; TEMP 97.8–99; O2SAT 94–99
[2023-04-29] MEDS: IPRATROPIUM BROM 0.5 MG/2.5ML INH SOL NEB PRN ×2 (00:39→08:43)
[2023-04-29] MEDS: ALBUTEROL SULF 2.5 MG/0.5ML(0.5%) NEB SOLN NEB SCH ×2 (00:39→08:43)
[2023-04-29] MEDS: VALPROATE INJ 500 MG in SODIUM CHL 0.9% 100 ML IV SCH (05:52)
[2023-04-29] MEDS: SODIUM CHLOR 0.9% PF (SALINE LOCK) 10ML VIAL/SYR IV SCH (05:55)
[2023-04-29] MEDS: LORazepam 2MG/ML-1ML VIAL IV PRN (06:40)
[2023-04-29] MEDS ORDERED: FOLIC ACID 1 MG, MULTIPLE VITAMIN 10 ML, MAGNESIUM SULF SDV 50% 8 MEQ, THIAMINE INJ 100... INJ SCH ×5 (18:00)
== END 2023-04-29 09:15 | disposition left against medical advice (07) | DRG 871 ==
LOC: ER 17:01 → EDBD 17:01 → TELE 21:43 → ICU WEST 21:43 → UNDOADMIN 22:06 → TELE 22:06 → ICU WEST 04-26 17:35
PROVIDERS: ADMIT Nurse Practitioner Family; ATTEND Nurse Practitioner Acute Care
PROC: 5A1945Z Respiratory Ventilation, 24-96 Consecutive Hours (ICD-10-PCS; principal; 2023-04-25)
PROC: 0BH17EZ Insertion of Endotracheal Airway into Trachea, Via Natural or Artificial Opening (ICD-10-PCS; 2023-04-25)
PROC: 5A09357 Assistance with Respiratory Ventilation, Less than 24 Consecutive Hours, Continuous Positive Airway Pressure (ICD-10-PCS; 2023-04-29)
DX: A41.9 Sepsis, unspecified organism (principal); J69.0 Pneumonitis due to inhalation of food and vomit; J96.00 Acute respiratory failure, unspecified whether with hypoxia or hypercapnia; E87.20 Acidosis, unspecified; G40.901 Epilepsy, unspecified, not intractable, with status epilepticus; I10 Essential (primary) hypertension; F17.290 Nicotine dependence, other tobacco product, uncomplicated; D53.9 Nutritional anemia, unspecified; Z88.1 Allergy status to other antibiotic agents; Z79.899 Other long term (current) drug therapy; Z53.29 Procedure and treatment not carried out because of patient's decision for other reasons
CPT/HCPCS: 31500; 36415; 36556; 36600; 70450; 70551; 71045; 80048; 80053; 80164; 80307; 80320; 81001; 82805; 83036; 83605; 83735; 84484; 85025; 85610; 85730; 87040; 87070; 87081; 87205; 93005; 94002; 94003; 94640; 95819; 96365; 96375; G0378; J1956; J2250; J2543; J2704; J7060

== ENCOUNTER 2023-09-16 11:08 | Inpatient (IN) | payer OTHER ==
[~2023-09-16] VITALS: Ht 182.9 cm; Wt 68.1 kg
[2023-09-16] VITALS (9 sets, daily range): BP systolic 100–124; BP diastolic 58–76; PULSE 66–111; RESP 18–32; TEMP 100.6; O2SAT 99–100
[2023-09-16] MEDS ORDERED: LORazepam 2MG/ML-1ML VIAL ONE (11:13)
[2023-09-16] MEDS: LORazepam 2MG/ML-1ML VIAL IV ONE (11:19)
[2023-09-16] MEDS: ROCURONIUM 10MG/ML 10ML VIAL IV ONE ×3 (11:24→12:38)
[2023-09-16] MEDS: ETOMIDATE (2MG/ML) 20ML VIAL IV ONE ×2 (11:24→11:31)
[2023-09-16] MEDS: MIDAZOLAM DRIP 50 mg/50mL 50 ML IV SCH (11:25)
[2023-09-16] MEDS: MIDAZOLAM DRIP 50 mg/50mL 50 ML IV ONE (11:31)
[2023-09-16 11:45] LABS: Urine Bacteria None Seen /hpf (None Seen)
[2023-09-16 11:57] LABS: Basophils # (auto) 0.1 10 ^3/uL (0-0.2); Basophils % (auto) 0.7 % (0.0-2.0); Eosinophils # (auto) 0 10 ^3/uL (0-0.8); Eosinophils % (auto) 0.2 % (0.0-7.0); Hematocrit 45.4 % (41.0-53.0); Hemoglobin 14.5 g/dL (13.5-17.5); Lymphocytes # (auto) 2.9 10 ^3/uL (0.4-5.4); Lymphocytes % (auto) 27.7 % (10.0-50.0); Mean Corpuscular Hemoglobin 33.8 pg (28.0-32.0); Mean Corpuscular Volume 105.6 fL (80.0-100.0); Monocytes # (auto) 0.9 10 ^3/uL (0-1.3); Monocytes % (auto) 8.9 % (0.0-12.0); Neutrophils # (auto) 6.5 10 ^3/uL (1.6-8.6); Neutrophils % (auto) 62.5 % (37.0-80.0); Nucleated Red Blood Cells % 0.1 %; Red Cell Distribution Width 13.9 % (11.8-14.3); White Blood Cell 10.4 10^3/uL (4.4-10.8)
[2023-09-16 12:05] LABS: Urine Blood 1+ /uL (Negative); Urine Clarity Clear (Clear); Urine Color Light-Yellow (Yellow); Urine Protein, UAD 2+ (Negative); Urine Specific Gravity 1.015 (1.001-1.035); Urine Urobilinogen Normal (Negative); Urine WBC <1 /hpf (0 - 3); Urine pH 5.5 (5.0-9.0)
[2023-09-16 12:21] LABS: Alanine Aminotransferase 16 U/L (7-40); Albumin 4.9 g/dL (3.2-4.8); Alkaline Phosphatase 119 U/L (46-116); Anion Gap 20 (5-15); Aspartate Aminotransferase 17 U/L (13-40); BUN/Creatinine Ratio 14.1 (10.0-20.0); Blood Urea Nitrogen 14 mg/dL (9-23); Calcium 9.6 mg/dL (8.5-10.1); Carbon Dioxide 12 mmol/L (20-30); Chloride 110 mmol/L (98-107); Glucose 188 mg/dL (74-106); Sodium 142 mmol/L (136-145)
[2023-09-16 12:22] LABS: Bilirubin, Total 0.4 mg/dL (0.2-1.0)
[2023-09-16 12:58] LABS: Base Excess -13.5 mmol/L (-2.0-2.0)
[2023-09-16] MEDS: KETAMINE 50mg/ML 10ml Vial 500 MG in SODIUM CHL 0.9% 490 ML IV SCH (13:26)
[2023-09-16 13:29] LABS: Amphetamine Screen, Urine Neg (NEGATIVE); Benzodiazephine Screen, Urine Neg (NEGATIVE)
[2023-09-16 13:30] LABS: Barbiturate Scree,Urine Neg (NEGATIVE); Cannabinoid Screen, Urine Pos (NEGATIVE); Cocaine Screen, Urine Neg (NEGATIVE); Opiate Scree,Urine Neg (NEGATIVE); Phencyclidine Screen, Urine Neg (NEGATIVE)
[2023-09-16] MEDS: PROPOFOL 100 ML IV SCH (13:51)
[2023-09-16] MEDS: PROPOFOL 100 ML IV ONE (13:52)
[2023-09-16] MEDS: SODIUM BICARB 8.4% 50Meq/50ml SYR Vial IV ONE (14:09)
[2023-09-16] MEDS: levETIRAcetam 1000 mg/100ml 100 ML IV ONE (14:09)
[2023-09-16 14:51] LABS: Base Excess -2.8 mmol/L (-2.0-2.0)
[2023-09-16] MEDS: ACETAMINOPHEN IV 1000 MG/100ML (10MG/ML) IV ONE (14:51)
[2023-09-16] MEDS: SODIUM CHLORIDE 0.9% 2,000 ML IV ONE (14:52)
[2023-09-16] MEDS ORDERED: DEXTROSE (50%) 50ML SYRG IV PRN (16:30)
[2023-09-16] MEDS ORDERED: MORPHINE SULFATE INJ 2 MG/ml SYRG IV PRN (16:30)
[2023-09-16] MEDS ORDERED: NITROGLYCERIN 0.4 MG SL TAB SL PRN (16:30)
[2023-09-16] MEDS: SODIUM CHLORIDE 0.9% 1,000 ML IV SCH (17:06)
[2023-09-16] MEDS: PANTOPRAZOLE 40 MG/10 ML VIAL INJ IV ONE (17:06)
[2023-09-16] MEDS: ENOXAPARIN SOD 40 MG/0.4 ML SYRINGE SC SCH (17:07)
[2023-09-16 17:55] LABS: Lactic Acid w/Reflex 2.4 mmol/L (0.4-2.0)
[2023-09-16] MEDS: InsuLIN REG 1unit/0.01ml Soln (100units/ml) SC SCH (18:54)
[2023-09-16] MEDS: ACCU-CHEK COMFORT CURVE STRIP VI SCH (18:54)
[2023-09-16] MEDS ORDERED: CENO50TA PO (20:47)
[2023-09-16] MEDS ORDERED: DIVA-91 PO (20:49)
[2023-09-16] MEDS: VALPROATE INJ 1,000 MG in SODIUM CHL 0.9% 100 ML IV ONE (22:00)
[2023-09-16] MEDS: levETIRAcetam 1000 mg/100ml 100 ML IV SCH (22:21)
[2023-09-16] MEDS: VALPROATE SODIUM 100 MG/ML 5ML VIAL IV ONE (22:50)
[2023-09-17] VITALS (91 sets, daily range): BP systolic 103–132; BP diastolic 59–89; PULSE 48–96; RESP 19–33; TEMP 96.8–99.3; O2SAT 93–100
[2023-09-17] MEDS: VALPROATE INJ 500 MG in SODIUM CHL 0.9% 100 ML IV SCH (06:56)
[2023-09-17 08:17] LABS: Base Excess -3.4 mmol/L (-2.0-2.0)
[2023-09-17] MEDS: ONDANSETRON HCL 4 MG/2 ML VIAL IV PRN (08:22)
[2023-09-17 09:55] LABS: Alanine Aminotransferase 11 U/L (7-40); Albumin 3.6 g/dL (3.2-4.8); Alkaline Phosphatase 84 U/L (46-116); Anion Gap 6 (5-15); Aspartate Aminotransferase 10 U/L (13-40); BUN/Creatinine Ratio 10.8 (10.0-20.0); Bilirubin, Total 0.5 mg/dL (0.2-1.0); Blood Urea Nitrogen 7 mg/dL (9-23); Calcium 8.6 mg/dL (8.5-10.1); Carbon Dioxide 22 mmol/L (20-30); Chloride 115 mmol/L (98-107); Glucose 90 mg/dL (74-106); Potassium 3.6 mmol/L (3.5-5.1); Sodium 143 mmol/L (136-145); Total Protein 5.2 g/dL (5.7-8.2)
[2023-09-17 10:12] LABS: Basophils # (auto) 0 10 ^3/uL (0-0.2); Eosinophils # (auto) 0 10 ^3/uL (0-0.8); Eosinophils % (auto) 0.1 % (0.0-7.0); Lymphocytes # (auto) 0.8 10 ^3/uL (0.4-5.4); Monocytes # (auto) 0.6 10 ^3/uL (0-1.3)
[2023-09-17 10:16] LABS: Basophils % (auto) 0.3 % (0.0-2.0); Hematocrit 35.9 % (41.0-53.0); Hemoglobin 12.3 g/dL (13.5-17.5); Lymphocytes % (auto) 11.4 % (10.0-50.0); Mean Corpuscular Hgb Conc. 34.1 g/dL (32.0-36.0); Mean Corpuscular Volume 99.7 fL (80.0-100.0); Monocytes % (auto) 7.6 % (0.0-12.0); Neutrophils % (auto) 80.6 % (37.0-80.0); Nucleated Red Blood Cells % 0.1 %; Red Cell Distribution Width 12.7 % (11.8-14.3); White Blood Cell 7.4 10^3/uL (4.4-10.8)
[2023-09-17] MEDS: PANTOPRAZOLE 40 MG/10 ML VIAL INJ IV SCH (11:02)
[2023-09-17] MEDS: D5W/SOD CHL 0.45% 1,000 ML IV SCH (11:15)
[2023-09-17] MEDS: fentaNYL Drip 2500mCg/250mlNS 250 ML IV SCH (13:18)
[2023-09-18] VITALS (63 sets, daily range): BP systolic 103–172; BP diastolic 54–104; PULSE 57–139; RESP 11–38; TEMP 98–103; O2SAT 93–100
[2023-09-18] MEDS: LORazepam 2MG/ML-1ML VIAL IV PRN (00:04)
[2023-09-18] MEDS: ACETAMINOPHEN 650 mg PER 20.3 mL UD GT PRN (01:05)
[2023-09-18 03:22] LABS: Basophils # (auto) 0 10 ^3/uL (0-0.2); Basophils % (auto) 0.3 % (0.0-2.0); Eosinophils # (auto) 0 10 ^3/uL (0-0.8); Eosinophils % (auto) 0.2 % (0.0-7.0); Hematocrit 42.4 % (41.0-53.0); Hemoglobin 14.3 g/dL (13.5-17.5); Lymphocytes # (auto) 0.6 10 ^3/uL (0.4-5.4); Lymphocytes % (auto) 5.9 % (10.0-50.0); Mean Corpuscular Hemoglobin 33.8 pg (28.0-32.0); Mean Corpuscular Hgb Conc. 33.7 g/dL (32.0-36.0); Mean Corpuscular Volume 100.2 fL (80.0-100.0); Monocytes # (auto) 1.3 10 ^3/uL (0-1.3); Monocytes % (auto) 12.4 % (0.0-12.0); Neutrophils # (auto) 8.6 10 ^3/uL (1.6-8.6); Neutrophils % (auto) 81.2 % (37.0-80.0); Nucleated Red Blood Cells % 0.1 %; Red Blood Cells 4.23 10^6/uL (4.5-5.90); Red Cell Distribution Width 12.6 % (11.8-14.3); White Blood Cell 10.6 10^3/uL (4.4-10.8)
[2023-09-18 03:30] LABS: Alanine Aminotransferase 11 U/L (7-40); Albumin 3.9 g/dL (3.2-4.8); Alkaline Phosphatase 86 U/L (46-116); Anion Gap 9 (5-15); Aspartate Aminotransferase 10 U/L (13-40); BUN/Creatinine Ratio 9.6 (10.0-20.0); Blood Urea Nitrogen 8 mg/dL (9-23); Calcium 9.1 mg/dL (8.7-10.4); Carbon Dioxide 22 mmol/L (20-30); Chloride 111 mmol/L (98-107); Glucose 94 mg/dL (74-106); Magnesium 1.6 mg/dL (1.6-2.6); Potassium 3.6 mmol/L (3.5-5.1); Sodium 142 mmol/L (136-145)
[2023-09-18 03:31] LABS: Bilirubin, Total 0.4 mg/dL (0.2-1.0); Total Protein 5.9 g/dL (5.7-8.2)
[2023-09-18 07:21] LABS: Base Excess -2.5 mmol/L (-2.0-2.0)
[2023-09-18 09:06] LABS: Base Excess -7.5 mmol/L (-2.0-2.0)
[2023-09-18] MEDS: MAGNESIUM SULFATE 1GM/100ML 100 ML IV ONE (12:12)
[2023-09-18] MEDS: POTASSIUM CHL 20MEQ/100ML 100 ML IV ONE (12:12)
== END 2023-09-18 20:35 | disposition left against medical advice (07) | DRG 100 ==
LOC: EDBD 11:08 → ER 11:08 → OVERFLOW 16:24 → ICU WEST 09-17 03:50
PROVIDERS: ADMIT Internal Medicine; ATTEND Internal Medicine
PROC: 0BH17EZ Insertion of Endotracheal Airway into Trachea, Via Natural or Artificial Opening (ICD-10-PCS; principal; 2023-09-16)
PROC: 5A1945Z Respiratory Ventilation, 24-96 Consecutive Hours (ICD-10-PCS; 2023-09-16)
PROC: 05HB33Z Insertion of Infusion Device into Right Basilic Vein, Percutaneous Approach (ICD-10-PCS; 2023-09-17)
PROC: B54MZZA Ultrasonography of Right Upper Extremity Veins, Guidance (ICD-10-PCS; 2023-09-17)
DX: G40.201 Localization-related (focal) (partial) symptomatic epilepsy and epileptic syndromes with complex partial seizures, not intractable, with status epilepticus (principal); J96.90 Respiratory failure, unspecified, unspecified whether with hypoxia or hypercapnia; E87.21 Acute metabolic acidosis; E87.3 Alkalosis; E86.0 Dehydration; F12.10 Cannabis abuse, uncomplicated; Z53.29 Procedure and treatment not carried out because of patient's decision for other reasons; G40.401 Other generalized epilepsy and epileptic syndromes, not intractable, with status epilepticus; D53.9 Nutritional anemia, unspecified; Z79.899 Other long term (current) drug therapy; Z88.1 Allergy status to other antibiotic agents; E16.2 Hypoglycemia, unspecified; Z91.199 Patient's noncompliance with other medical treatment and regimen due to unspecified reason; Z82.49 Family history of ischemic heart disease and other diseases of the circulatory system; Z83.3 Family history of diabetes mellitus
CPT/HCPCS: 36415; 36600; 70450; 71045; 80053; 80164; 80307; 81001; 82550; 82805; 82962; 83605; 83735; 85025; 87040; 87070; 87081; 87086; 87205; 93005; 94002; 94003; 95819; 96365; 96375; C9113; G0378; J0131; J2405; J2704; J3480

== ENCOUNTER 2023-12-19 10:32 | Emergency (ER) | payer OTHER ==
[~2023-12-19] VITALS: Ht 180.3 cm; Wt 72.7 kg
[~2023-12-19 10:32] MED LIST changes: +CENO50TA PO; +DIVA-91 PO; -LACO50TA2 PO
[2023-12-19 11:00] VITALS: PULSE 92; RESP 17; O2SAT 95
[2023-12-19] MEDS: SODIUM CHLORIDE 0.9% 1,000 ML IV ONE (11:03)
[2023-12-19] MEDS: PROCHLORPERAZINE EDISYLATE 5 MG/ML 2ML VIAL IV ONE (11:03)
[2023-12-19] MEDS: LORazepam 2MG/ML-1ML VIAL IV ONE (11:03)
[2023-12-19 11:34] LABS: Eosinophils # (auto) 0 10 ^3/uL (0-0.8); Lymphocytes % (auto) 34.7 % (10.0-50.0); Nucleated Red Blood Cells % 0.1 %
[2023-12-19 11:35] LABS: Basophils # (auto) 0 10 ^3/uL (0-0.2); Basophils % (auto) 0.5 % (0.0-2.0); Eosinophils % (auto) 0.4 % (0.0-7.0); Hemoglobin 15.8 g/dL (13.5-17.5); Mean Corpuscular Hemoglobin 34.9 pg (28.0-32.0); Mean Corpuscular Hgb Conc. 33.7 g/dL (32.0-36.0); Mean Corpuscular Volume 103.6 fL (80.0-100.0); Monocytes # (auto) 0.8 10 ^3/uL (0-1.3); Monocytes % (auto) 9.1 % (0.0-12.0); Neutrophils # (auto) 4.7 10 ^3/uL (1.6-8.6); Neutrophils % (auto) 55.3 % (37.0-80.0); Platelet Count (auto) 239 10^3/uL (140-450); Red Blood Cells 4.54 10^6/uL (4.5-5.90); White Blood Cell 8.5 10^3/uL (4.4-10.8)
[2023-12-19 11:43] LABS: Anion Gap 20.00001 (5-15); Chloride 108 mmol/L (98-107); Potassium 4.2 mmol/L (3.5-5.1); Sodium 138 mmol/L (136-145)
[2023-12-19 11:44] LABS: Calcium 9.8 mg/dL (8.7-10.4)
[2023-12-19 11:49] LABS: BUN/Creatinine Ratio 17.6 (10.0-20.0); Blood Alcohol < 3.0 mg/dL (<10); Blood Urea Nitrogen 18 mg/dL (9-23); Glucose 194 mg/dL (74-106)
[2023-12-19 11:54] LABS: Carbon Dioxide < 10 mmol/L (20-31)
[2023-12-19 14:00] VITALS: BP 118/72; PULSE 72; RESP 21; O2SAT 97
== END 2023-12-19 14:49 | disposition home or self-care (01) ==
LOC: EDBD 10:32 → ER 10:32
DX: G40.909 Epilepsy, unspecified, not intractable, without status epilepticus (principal); R53.1 Weakness; R11.10 Vomiting, unspecified; F12.90 Cannabis use, unspecified, uncomplicated
CPT/HCPCS: 36415; 80048; 80164; 80320; 85025; 96361; 96374; 96375; 99284; J0780; J2060; J7030

== ENCOUNTER 2025-01-15 13:34 | Inpatient (IN) | payer OTHER, SELFPAY ==
[~2025-01-15] VITALS: Ht 182.9 cm; Wt 70.0 kg
[2025-01-15 13:36] VITALS: PULSE 86; RESP 19; O2SAT 95
[2025-01-15 13:40] VITALS: BP 130/69; RESP 30; TEMP 97; O2SAT 98
[2025-01-15] MEDS: SODIUM CHLORIDE 0.9% 1,000 ML IV ONE ×2 (13:48→16:05)
[2025-01-15 13:54] VITALS: PULSE 70
--- NOTE | 2025-01-15 13:54 | ED.PDOC ---
HPI (NEURO) HPI Comments This is a 24 year-old male who presents to the ED via EMS for seizure. Per EMS, patient was altered and seizing on scene. Patient was SVT and converted to NSR en route. Patient was given 5mg Versed IM, with response. Per EMS, patient was given Diazepam via family today. Patients last episode was recorded to be X4 months ago. Patient takes Depakote at home. Patient is altered at this time and unable to answer any questions. Chief Complaint: Seizure Time Seen by MD: 13:42 Primary Care Provider: UNKNOWN Reviewed Notes: Medications, Allergies Information Source: Emergency Med Personnel Mode of Arrival: EMS Severity: Moderate Timing: Minutes Duration: Since onset Circumstances: Spontaneous Associated Signs and Symptoms: Other (Seizure ) Past Medical History PAST MEDICAL HISTORY: Seizures Surgical History: Unknown Family History Family History: Reviewed,noncontributory to illness Social History Smoker: Non-Smoker Alcohol: Denies ETOH Use Drugs: Marijuana Lives In: Home Constitutional: denies: chills, diaphoresis, fatigue, fever, malaise, sweats, weakness, others EENTM: denies: blurred vision, double vision, ear bleeding, ear discharge, ear drainage, ear pain, ear ringing, eye pain, eye redness, hearing loss, mouth pain, mouth swelling, nasal discharge, nose bleeding, nose congestion, nose pain, photophobia, tearing, throat pain, throat swelling, voice changes, others Respiratory: denies: cough, hemoptysis, orthopnea, SOB at rest, shortness of breath, SOB with excertion, stridor, wheezing, others Cardiovascular: denies: chest pain, dizzy spells, diaphoresis, Dyspnea on exertion, edema, irregular heart beat, left arm pain, lightheadedness, palpitations, PND, syncope, others Gastrointestinal: denies: abdomen distended, abdominal pain, blood streaked bowels, constipated, diarrhea, dysphagia, difficulty swallowing, hematemesis, melena, nausea, poor appetite, poor fluid intake, rectal bleeding, rectal pain, vomiting, others Genitourinary: denies: burning, dysuria, flank pain, frequency, hematuria, incontinence, penile discharge, penile sore, pain, testicle pain, testicle swelling, urgency, others Neurological: reports: seizure; denies: dizziness, fainting, headache, left sided numbness, left sided weakness, numbness, paresthesia, pre-existing defic it, right sided numbness, right sided weakness, speech problems, tingling, tremors, weakness, others Musculoskeletal: denies: back pain, gout, joint pain, joint swelling, muscle pain, muscle stiffness, neck pain, others Integumetry: denies: bruises, change in color, change in hair/nails, dryness, laceration, lesions, lumps, rash, wounds, others Allergic/Immunocompromised: denies: Difficulty Healing, Frequent Infections, Hives, Itching, others Hematologic/Lymphatic: denies: anemia, blood clots, easy bleeding, easy bruising, swollen glands, others Endocrine: denies: excessive hunger, excessive sweating, excessive thirst, excessive urination, flushing, intolerance to cold, intolerance to heat, unexplained weight gain, unexplained weight loss, others Psychiatric: denies: anxiety, bipolar disorder, depression, hopeless, panic disorder, schizophrenia, sleepless, suicidal, others All Other Systems: Reviewed and Negative Physical Exam General Appearance: Moderate Distress HEENT: Normal ENT Inspection, Pharynx Normal, TMs Normal Neck: Full Range of Motion, Non-Tender, Normal, Normal Inspection Respiratory: Chest Non-Tender, Lungs Clear, No Accessory Muscle Use, No Respiratory Distress, Normal Breath Sounds Cardiovascular: No Edema, No JVD, No Murmur, No Gallop, Normal Peripheral Pulses, Regular Rate/Rhythm Breast Exam: Deferred Gastrointestinal: No Organomegaly, Non Tender, No Pulsatile Mass, Normal Bowel Sounds, Soft Genitalia: Deferred Pelvic: Deferred Rectal: Deferred Extremities: No calf tenderness, Normal capillary refill, Normal inspection, Normal range of motion, Non-tender, No pedal edema Musculoskeletal : Apperance: Normal Neurologic: Disoriented Cerebellar Function: NOT DONE Reflexes: NOT DONE Skin: Normal Color Peripheral Pulses: 3+ Radial (R), 3+ Radial (L) Lymphatic: No Adenopathy EKG EKG : Pulse Rate (adult): 70 [place]: Normal Cardiac Rhythm: NSR Block: None Hypertrophy: None ST: Normal Was a procedure done? Was a procedure done?: No Differential Diagnosis (SZ) Seizure: Psychogenic Seizure, Closed Head Injury, CVA/TIA, Syncope, Epilepsy- Status X-Ray, Labs, Meds, VS Vital Signs Date Time Temp Pulse Resp B/P (MAP) Pulse Ox O2 Delivery O2 Flow Rate FiO2 01/15/25 13:54 70 01/15/25 13:40 97.0 87 30 130/69 98 97.0 01/15/25 13:36 86 19 95 Room Air* 0 21 01/15/25 13:36 70 01/15/25 13:36 97.8 86 19 134/79 (97) 95 97.8 Lab Test 01/15/25 13:44 01/15/25 13:43 Range/Units POC Glucose 178 H 70-106 mg/dl White Blood Count 10.6 4.4-10.8 10^3/uL Red Blood Count 4.40 L 4.5-5.90 10^6/uL Hemoglobin 15.0 13.5-17.5 g/dL Hematocrit 44.8 41.0-53.0 % Mean Corpuscular Volume 101.7 H 80.0-100.0 fL Mean Corpuscular Hemoglobin 34.1 H 28.0-32.0 pg Mean Corpuscular Hemoglobin Concent 33.5 32.0-36.0 g/dL Red Cell Distribution Width 12.9 11.8-14.3 % Platelet Count 252 140-450 10^3/uL Mean Platelet Volume 9.6 6.9-10.8 fL Neutrophils (%) (Auto) 65.5 37.0-80.0 % Lymphocytes (%) (Auto) 24.3 10.0-50.0 % Monocytes (%) (Auto) 9.0 0.0-12.0 % Eosinophils (%) (Auto) 0.2 0.0-7.0 % Basophils (%) (Auto) 1.0 0.0-2.0 % Neutrophils # (Auto) 7.0 1.6-8.6 10 ^3/uL Lymphocytes # (Auto) 2.6 0.4-5.4 10 ^3/uL Monocytes # (Auto) 1.0 0-1.3 10 ^3/uL Eosinophils # (Auto) 0 0-0.8 10 ^3/uL Basophils # (Auto) 0.1 0-0.2 10 ^3/uL Nucleated Red Blood Cells 0.1 % Sodium Level 141 136-145 mmol/L Potassium Level 3.7 3.5-5.1 mmol/L Chloride Level 106 98-107 mmol/L Carbon Dioxide Level 14 L 20-31 mmol/L Anion Gap 21 H 5-15 Blood Urea Nitrogen 10 9-23 mg/dL Creatinine 1.17 0.700-1.30 mg/dL Glomerular Filtration Rate Calc 89 >90 mL/min BUN/Creatinine Ratio 8.5 L 10.0-20.0 Serum Glucose 196 H 74-106 mg/dL Calcium Level 9.0 8.7-10.4 mg/dL Current Medications Medications (Trade) Dose Ordered Sig/Devendra Route Start Time Stop Time Status Last Admin Sodium Chloride 1,000 ml @ 1,000 mls/hr Q1H ONCE IV 01/15/25 13:45 01/15/25 14:44 DC 01/15/25 13:48 Sodium Chloride 1,000 ml @ 150 mls/hr Q6H40M ONCE IV 01/15/25 13:45 01/15/25 20:24 01/15/25 16:05 [place] [id number] Ph: [phone] DIAGNOSTIC IMAGING Diagnostic Imaging Report : [id number] Signed PATIENT: RADHA ORO ACCT: [id number] UNIT: [id number] : 2000 LOC: ER ROOM / BED: / AGE / SEX: 24 / M ADM STATUS: REG ER SERVICE 1343 ORDERING PHYSICIAN: CINDY HATFIELD MD PROCEDURE(s): CXRP - CHEST PORTABLE REASON: sob ORDER NUMBER(s): [id number], ACCESSION NUMBER(s): [id number] EXAM: XY CHEST PORTABLE Indication: sob Technique: Single frontal view of the chest was obtained Comparison: XY CHEST PORTABLE on DOS: 09/18/23, XY CHEST PORTABLE on DOS: 09/17/23, XY CHEST PORTABLE on DOS: 09/16/23, XY CHEST XRAY 1 VIEW on DOS: 04/27/23, XY CHEST XRAY 1 VIEW on DOS: 04/25/23 FINDINGS: Lines and Tubes: None Lungs: No focal consolidation. Pleura: No effusion. No pneumothorax. Cardiomediastinal contours: Unremarkable Bones: No acute osseous abnormality. IMPRESSION: No acute cardiopulmonary disease. Patient is slightly disoriented. Had a seizure. Vitals stable. No sign of any injury. Blood sugar elevated. Establish intravenous access. Was given fluids. Continue to monitor. Images Reviewed?: Images reviewed and evaluated by me Time of 1ST Reevaluation: 14:27 Reevaluation 1ST: Unchanged Patient Education/Counseling: Diagnosis, Treatment Family Education/Counseling: No Family Present Departure 1 Departure Time of Disposition: 16:33 Impression: Primary Impression: Metabolic encephalopathy Additional Impression: Hyperglycemia Disposition: ADMITTED INPATIENT Admit to: Med Surg Condition: Guarded Critical Care Note Critical Care Time?: Yes (90 min-critical care time only) Stability Stability form required: No Heart Score Heart Score: Heart Score Response (Comments) Value History Slightly Suspicious 0 EKG Normal 0 Age <45 0 Risk Factors No known risk factors 0 Troponin Normal limit 0 Total 0 I personally scribed for CINDY HATFIELD MD ([email or web address]) on 01/15/25 at 13:54. Electronically submitted by Yvette Hsu (Cost Effective Data). I personally scribed for CINDY HATFIELD MD ([email or web address]) on 01/15/25 at 17:03. Electronically submitted by Yvette Hsu (Cost Effective Data). CINDY HATFIELD MD Jan 15, 2025 13:54
[2025-01-15 14:07] LABS: Hematocrit 44.8 % (41.0-53.0); Hemoglobin 15.0 g/dL (13.5-17.5); Mean Corpuscular Hemoglobin 34.1 pg (28.0-32.0); Mean Corpuscular Volume 101.7 fL (80.0-100.0); Nucleated Red Blood Cells % 0.1 %
[2025-01-15 14:14] LABS: Chloride 106 mmol/L (98-107); Potassium 3.7 mmol/L (3.5-5.1); Sodium 141 mmol/L (136-145)
[2025-01-15 14:15] LABS: Anion Gap 21 (5-15); Calcium 9.0 mg/dL (8.7-10.4); Carbon Dioxide 14 mmol/L (20-31)
--- NOTE | 2025-01-15 14:15 | DVH ---
EXAM: XY CHEST PORTABLE Indication: sob Technique: Single frontal view of the chest was obtained Comparison: XY CHEST PORTABLE on DOS: 09/18/23, XY CHEST PORTABLE on DOS: 09/17/23, XY CHEST PORTABLE o n DOS: 09/16/23, XY CHEST XRAY 1 VIEW on DOS: 04/27/23, XY CHEST XRAY 1 VIEW on DOS: 04/25/23 FINDINGS: Lines and Tubes: None Lungs: No focal consolidation. Pleura: No effusion. No pneumothorax. Cardiomediastinal contours: Unremarkable Bones: No acute osseous abnormality. IMPRESSION: No acute cardiopulmonary disease.
[2025-01-15 14:20] LABS: BUN/Creatinine Ratio 8.5 (10.0-20.0); Blood Urea Nitrogen 10 mg/dL (9-23)
[2025-01-15 14:21] LABS: Glucose 196 mg/dL (74-106)
[2025-01-15] MEDS ORDERED: ACETAMINOPHEN 325 MG TAB PO PRN ×2 (16:45→17:00)
[2025-01-15] MEDS ORDERED: ONDANSETRON HCL 4 MG/2 ML VIAL IV PRN ×2 (16:45→17:00)
[2025-01-15] MEDS ORDERED: DEXTROSE (50%) 50ML SYRG IV PRN ×2 (16:45→17:00)
--- NOTE | 2025-01-15 16:56 | DVHHP2 ---
History of Present Illness Reason for Visit: Seizure History of Present Illness Raul June is a 24-year-old male with past medical history of seizure who presents to the ED with a seizure disorder. Per family patient takes Depakote at home. Patient with dad at bedside and decided to leave AMA with risks and benefits discussed. Drugs: Marijuana Lives: with Family Domestic Violence: Neg Review of Systems Neurological: Seizures Allergies: Coded Allergies: Azithromycin (Verified Allergy, Unknown, 01/06/16) Exam Vital Signs Vital Signs Date Time Temp Pulse Resp B/P (MAP) Pulse Ox O2 Delivery O2 Flow Rate FiO2 01/15/25 13:54 70 01/15/25 13:40 97.0 30 130/69 98 97.0 01/15/25 13:36 Room Air* 0 21 Labs/Xrays Labs Test 01/15/25 13:44 01/15/25 13:43 Range/Units POC Glucose 178 H 70-106 mg/dl White Blood Count 10.6 4.4-10.8 10^3/uL Red Blood Count 4.40 L 4.5-5.90 10^6/uL Hemoglobin 15.0 13.5-17.5 g/dL Hematocrit 44.8 41.0-53.0 % Mean Corpuscular Volume 101.7 H 80.0-100.0 fL Mean Corpuscular Hemoglobin 34.1 H 28.0-32.0 pg Mean Corpuscular Hemoglobin Concent 33.5 32.0-36.0 g/dL Red Cell Distribution Width 12.9 11.8-14.3 % Platelet Count 252 140-450 10^3/uL Mean Platelet Volume 9.6 6.9-10.8 fL Neutrophils (%) (Auto) 65.5 37.0-80.0 % Lymphocytes (%) (Auto) 24.3 10.0-50.0 % Monocytes (%) (Auto) 9.0 0.0-12.0 % Eosinophils (%) (Auto) 0.2 0.0-7.0 % Basophils (%) (Auto) 1.0 0.0-2.0 % Neutrophils # (Auto) 7.0 1.6-8.6 10 ^3/uL Lymphocytes # (Auto) 2.6 0.4-5.4 10 ^3/uL Monocytes # (Auto) 1.0 0-1.3 10 ^3/uL Eosinophils # (Auto) 0 0-0.8 10 ^3/uL Basophils # (Auto) 0.1 0-0.2 10 ^3/uL Nucleated Red Blood Cells 0.1 % Sodium Level 141 136-145 mmol/L Potassium Level 3.7 3.5-5.1 mmol/L Chloride Level 106 98-107 mmol/L Carbon Dioxide Level 14 L 20-31 mmol/L Anion Gap 21 H 5-15 Blood Urea Nitrogen 10 9-23 mg/dL Creatinine 1.17 0.700-1.30 mg/dL Glomerular Filtration Rate Calc 89 >90 mL/min BUN/Creatinine Ratio 8.5 L 10.0-20.0 Serum Glucose 196 H 74-106 mg/dL Calcium Level 9.0 8.7-10.4 mg/dL EXAM: XY CHEST PORTABLE Indication: sob Technique: Single frontal view of the chest was obtained Comparison: XY CHEST PORTABLE on DOS: 09/18/23, XY CHEST PORTABLE on DOS: 09/17/23, XY CHEST PORTABLE on DOS: 09/16/23, XY CHEST XRAY 1 VIEW on DOS: 04/27/23, XY CHEST XRAY 1 VIEW on DOS: 04/25/23 FINDINGS: Lines and Tubes: None Lungs: No focal consolidation. Pleura: No effusion. No pneumothorax. Cardiomediastinal contours: Unremarkable Bones: No acute osseous abnormality. IMPRESSION: No acute cardiopulmonary disease. SEPSIS Sepsis Screen Date sepsis recognized/suspect: Jan 15, 2025 Time Sepsis recognized/suspect: 1347 Recent Procedure: No On Antibiotic Therapy: No Respiratory Rate >20: Yes Heart Rate >90: No Temp<36 C (96.8 F) or >38.3 C: No SBP <90 or MAP <65 mmHG: No New Acute Mental Status Change: No Is the patient on CPAP, BIPAP,: No Physician Orders Chest Portable (01/15/25 13:43) Urinalysis (01/15/25 13:36) Sodium Chloride 0.9% (01/15/25 13:45) Insert Kendall Catheter QSHIFT (01/15/25 13:36) Drug Screen (01/15/25 13:36) Electrocardigram (01/15/25 13:38) Vital Signs Date Time Temp Pulse Resp B/P (MAP) Pulse Ox O2 Delivery O2 Flow Rate FiO2 01/15/25 13:54 70 01/15/25 13:40 97.0 87 30 130/69 98 97.0 01/15/25 13:36 86 19 95 Room Air* 0 21 01/15/25 13:36 70 01/15/25 13:36 97.8 86 19 134/79 (97) 95 97.8 Laboratory Tests Test 01/15/25 13:43 White Blood Count 10.6 10^3/uL (4.4-10.8) Medications Medications Dose Ordered Sig/Devendra Route Start Time Stop Time Status Last Admin Dose Admin Sodium Chloride 1,000 ml @ 150 mls/hr Q6H40M ONCE IV 01/15/25 13:45 01/15/25 20:24 01/15/25 16:05 150 MLS/HR Sodium Chloride 1,000 ml @ 1,000 mls/hr Q1H ONCE IV 01/15/25 13:45 01/15/25 14:44 DC 01/15/25 13:48 1,000 MLS/HR Assessment/Plan Assessment/Plan Assessment Seizure disorder Marijuana use Plan Admit to med surge Seizure precautions NS 2 L given ED EKG UDS UA Chest x-ray Keppra Hemoglobin A1c ISS and Accu-Cheks Diet Home medications reconciled DVT prophylaxis-not indicated patient ambulating PUD prophylaxis-not indicated no history of GERD or GI bleed Discussed plan of care with patient and nurse Neuro consult Counseled patient on cessation of marijuana use [id number] Behavior change smoking greater than 10 minutes about use of other options also gave option of nicotine patch [id number] Preventive counseling healthy eating habits, physical activity, and regular checkups Patient left AMA with risks and benefits discussed. Plan discussed with: Patient Date of Service: Jan 15, 2025 Billing Provider: MARIAH ESQUEDA Common Visit Codes: [id number] INP/OBS CARE (HIGH) Secondary Visit Codes: [id number] COUNSELING IND MARIAH ESQUEDA Jan 15, 2025 16:56
[2025-01-15] MEDS ORDERED: ACCU-CHEK COMFORT CURVE STRIP VI SCH ×2 (17:00)
[2025-01-15] MEDS ORDERED: InsuLIN REG 1unit/0.01ml Soln (100units/ml) SC SCH ×2 (17:00)
[2025-01-15 17:12] LABS: Urine Protein, UAD 1+ (Negative)
[2025-01-15 17:24] LABS: Cannabinoid Screen, Urine Pos (NEGATIVE)
[2025-01-15 17:26] LABS: Amphetamine Screen, Urine Neg (NEGATIVE); Barbiturate Scree,Urine Neg (NEGATIVE); Benzodiazephine Screen, Urine Pos (NEGATIVE); Cocaine Screen, Urine Neg (NEGATIVE); Opiate Scree,Urine Neg (NEGATIVE); Phencyclidine Screen, Urine Neg (NEGATIVE)
--- NOTE | 2025-01-15 17:38 | ECG ---
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
[2025-01-15] MEDS ORDERED: ZONISAMIDE 400 MG PO SCH ×2 (18:00)
[2025-01-15] MEDS ORDERED: levETIRAcetam 500 mg/100ml 100 ML IV SCH ×2 (22:00)
[2025-01-16] MEDS ORDERED: PATIENTS OWN MEDICATION (Divalproex Sodium (Depakote) 1 TAB) PO SCH ×2 (10:00)
== END 2025-01-15 16:55 | disposition left against medical advice (07) | DRG 72 ==
LOC: EDBD 13:34 → ER 13:42 → OVERFLOW 16:40 → ER 16:55 → OVERFLOW 16:55
DX: G93.41 Metabolic encephalopathy (principal); R73.9 Hyperglycemia, unspecified; Z53.29 Procedure and treatment not carried out because of patient's decision for other reasons
CPT/HCPCS: 36415; 71045; 80048; 80307; 81001; 82962; 83036; 85025; 93005; 96360; 96361; 99291; 99292; G0378